=== PATIENT | female | born 1965 | race Caucasian/White ===

== ENCOUNTER → 2016-11-12 | Outpatient (CLI) | payer BC ==
[~2016-11-12] MED LIST: APR25 PO; BSP15 PO; DILT360C22 PO; LPT40 PO; LSN5 PO; OMEP20CA59 PO; RIZA1TAB11 PO
[2016-11-12 10:28] LABS: BASO % 0.2 %; BASO ABS # 0.01 K/uL (0-0.2); COMPLETE YES; EOS % 7.4 %; HEMATOCRIT 42.1 % (37-47); IG% 0.2 %; LYMPH % 38.8 %; LYMPH ABS # 2.19 K/uL (1.2-3.4); MEAN CELL VOLUME 95.7 fL (80-100); MEAN CORPUSCULAR HEMOGLOBIN 32.3 pg (25-34); MEAN CORPUSCULAR HGB CONC 33.7 g/dl (32-36); MEAN PLATELET VOLUME 9.6 fL (7.4-10.4); MONO % 5.9 %; NEUT % 47.5 %; PLATELET COUNT 311 K/uL (130-400); WHITE BLOOD COUNT 5.64 K/uL (4.8-10.8)
[2016-11-12 10:38] LABS: URINE APPEARANCE CLEAR (CLEAR); URINE BILIRUBIN NEG (NEG); URINE COLOR YELLOW; URINE NITRITE NEG (NEG); UROBILINOGEN NEG (NEG)
[2016-11-12 10:46] LABS: MANUAL MICROSCOPIC REQUIRED? NO; REVIEW REQ? NO
[2016-11-12 10:56] LABS: ALT/SGPT 29 U/L (12-78); AST/SGOT 18 U/L (15-37); BLOOD UREA NITROGEN 16 mg/dl (7-18); BUN/CREATININE RATIO 22.9 (10-20); CALCIUM 9.7 mg/dl (8.5-10.1); CARBON DIOXIDE 27 mmol/L (21-32); CHLORIDE 106 mmol/L (98-107); CHOLESTEROL 280 mg/dl (0-200); CREATININE 0.69 mg/dl (0.60-1.20); GLUCOSE 80 mg/dl (70-99); POTASSIUM 4.3 mmol/L (3.5-5.1); SODIUM 139 mmol/L (136-145); TRIGLYCERIDES 95 mg/dl (0-150); VERY LOW DENSITY LIPOPROT CALC 19 mg/dl
[2016-11-12 11:06] LABS: CHOLESTEROL/HDL RATIO 4.1; HDL CHOLESTEROL 68 mg/dl; LDL CHOLESTEROL CALCULATED 193 mg/dl
[2016-11-12 11:50] LABS: ESTIMATED AVERAGE GLUCOSE 100 mg/dl; HA1C FLAG Normal (Normal)
== END | disposition home or self-care (01) ==
LOC: C.LAB1850 09:00
PROVIDERS: ATTEND Internal Medicine
DX: E78.5 Hyperlipidemia, unspecified (principal)

== ENCOUNTER → 2017-02-01 | Outpatient (CLI) | payer BC | END | disposition home or self-care (01) | LOC: C.LAB 09:30 | PROVIDERS: ATTEND Nutritionist | DX: R53.83 Other fatigue (principal) ==

== ENCOUNTER → 2017-04-26 | Outpatient (CLI) | payer BC | END | disposition home or self-care (01) | LOC: C.PAPS 14:49 | PROVIDERS: ATTEND Obstetrics & Gynecology | DX: Z01.419 Encounter for gynecological examination (general) (routine) without abnormal findings (principal) ==

== ENCOUNTER → 2017-05-10 | Outpatient (CLI) | payer BC ==
[2017-05-10 10:38] LABS: BASO % 0.3 %; BASO ABS # 0.01 K/uL (0-0.2); COMPLETE YES; EOS % 5.5 %; HEMATOCRIT 40.7 % (37-47); IG% 0.3 %; LYMPH % 42.8 %; LYMPH ABS # 1.64 K/uL (1.2-3.4); MEAN CELL VOLUME 97.1 fL (80-100); MEAN CORPUSCULAR HEMOGLOBIN 32.5 pg (25-34); MEAN CORPUSCULAR HGB CONC 33.4 g/dl (32-36); MEAN PLATELET VOLUME 9.3 fL (7.4-10.4); MONO % 9.9 %; NEUT % 41.2 %; PLATELET COUNT 247 K/uL (130-400); RED BLOOD COUNT 4.19 M/uL (4.2-5.4); WHITE BLOOD COUNT 3.83 K/uL (4.8-10.8)
[2017-05-10 11:08] LABS: CHOLESTEROL/HDL RATIO 3.8
== END | disposition home or self-care (01) ==
LOC: C.LAB1850 09:34
PROVIDERS: ATTEND Internal Medicine
DX: E78.5 Hyperlipidemia, unspecified (principal); I67.9 Cerebrovascular disease, unspecified

== ENCOUNTER → 2017-07-13 | Outpatient (CLI) | payer OTHER ==
--- NOTE | 2017-07-13 15:56 | MAMMOGRAPHY REPORT ---
BILATERAL DIGITAL SCREENING MAMMOGRAM TOMOSYNTHESIS WITH CAD: 07/13/2017 CLINICAL HISTORY: Routine screening. Patient has no complaints. TECHNIQUE: Breast tomosynthesis in addition to standard 2D mammography was performed. Current study was also evaluated with a Computer Aided Detection (CAD) system. COMPARISON: Comparison is made to exams dated: 12/25/2015 mammogram, 05/30/2013 mammogram, 04/16/2010 ammogram - [facility], 10/21/2008, and 09/26/2007. BREAST COMPOSITION: There are scattered areas of fibroglandular density in both breasts. FINDINGS: No suspicious masses, calcifications, or areas of architectural distortion are noted in ei ther breast. There has been no significant interval change compared to prior exams. There is a stabl e asymmetry within the left medial breast on the cc view. IMPRESSION: ACR BI-RADS CATEGORY 2: BENIGN There is no mammographic evidence of malignancy. A 1 year screening mammogram is recommended. The pa tient will receive written notification of the results. Approximately 10% of breast cancers are not detected with mammography. A negative mammographic report should not delay biopsy if a clinically suggestive mass is present. Bharati Guzman M.D. ah/:07/13/2017 12:49:38 Separator Inserter: Liya OLIVEIRA(R)(M), [facility] letter sent: Normal 1/2 BI-RADS Code: ACR BI-RADS Category 2: Benign
== END | disposition home or self-care (01) ==
LOC: C.MAMM 12:24
PROVIDERS: ATTEND Obstetrics & Gynecology
DX: Z12.31 Encounter for screening mammogram for malignant neoplasm of breast (principal)

== ENCOUNTER → 2017-12-27 | Outpatient (CLI) | payer OTHER ==
[~2017-12-27] MED LIST changes: +LISI-730 PO; -LSN5 PO
[2017-12-29 16:29] LABS: MICROSOMAL AB <1 IU/ML (<9)
== END | disposition home or self-care (01) ==
LOC: C.LAB1850 14:58
PROVIDERS: ATTEND Internal Medicine Endocrinology, Diabetes & Metabolism
DX: L67.8 Other hair color and hair shaft abnormalities (principal); L60.3 Nail dystrophy